=== PATIENT | female | born 1980 | race Caucasian/White ===

== ENCOUNTER 2017-12-12 05:09 | Emergency (ER) | payer SELFPAY ==
[2017-12-12] MEDS: IBUPROFEN 600 MG TABLET. PO (05:37)
== END 2017-12-12 05:45 | disposition home or self-care (01) ==
LOC: ER 05:09
DX: S09.90XA Unspecified injury of head, initial encounter (principal); E05.90 Thyrotoxicosis, unspecified without thyrotoxic crisis or storm; F17.210 Nicotine dependence, cigarettes, uncomplicated; Z88.2 Allergy status to sulfonamides; W01.0XXA Fall on same level from slipping, tripping and stumbling without subsequent striking against object, initial encounter; Y93.89 Activity, other specified; Y92.89 Other specified places as the place of occurrence of the external cause; Y99.8 Other external cause status
CPT/HCPCS: 99282